=== PATIENT | female | born 1990 | race Caucasian/White ===

== ENCOUNTER 2016-12-21 12:23 | Emergency (ER) | payer OTHER ==
--- NOTE | 2016-12-21 14:50 | XR ---
EXAMINATION TYPE: XR ankle complete RT DATE OF EXAM: 12/21/2016 2:08 PM COMPARISON: NONE HISTORY: Pain fall TECHNIQUE: 3 view right ankle FINDINGS: No acute fractures are evident. Ankle mortise is intact. There is mild diffuse soft tissue swelling. Follow-up studies can be performed 7-10 days from acute trauma for continued pain. IMPRESSION: 1. Soft tissue swelling. Acute displaced fracture is not identified. Follow-up can be performed as c linically indicated.
[2016-12-21] MEDS ORDERED: Acetaminophen-Codeine 300-30mg TAB PO STA (15:14)
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
[2016-12-21 15:30] VITALS: BP 130/68; PULSE 70; RESP 16; TEMP 98
== END 2016-12-21 15:29 | disposition home or self-care (01) ==
LOC: EC 12:23
DX: S93.401A Sprain of unspecified ligament of right ankle, initial encounter (principal); F17.200 Nicotine dependence, unspecified, uncomplicated; Z88.8 Allergy status to other drugs, medicaments and biological substances; Z91.018 Allergy to other foods; Z91.040 Latex allergy status; X50.1XXA Overexertion from prolonged static or awkward postures, initial encounter
CPT/HCPCS: 29515; 99283

== ENCOUNTER 2018-02-16 11:00 | Emergency (ER) | payer OTHER ==
[2018-02-16 11:07] VITALS: BP 121/82; PULSE 88; RESP 18; TEMP 98.6
[2018-02-16] MEDS ORDERED: HYDROcodone/APAP 5-325MG 1 EACH TAB PO STA (11:35)
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
== END 2018-02-16 12:34 | disposition home or self-care (01) ==
LOC: EC 11:00
DX: T23.162A Burn of first degree of back of left hand, initial encounter (principal); T23.132A Burn of first degree of multiple left fingers (nail), not including thumb, initial encounter; T31.0 Burns involving less than 10% of body surface; L25.9 Unspecified contact dermatitis, unspecified cause; F17.200 Nicotine dependence, unspecified, uncomplicated; Z88.8 Allergy status to other drugs, medicaments and biological substances; Z91.018 Allergy to other foods; Z91.040 Latex allergy status; X11.8XXA Contact with other hot tap-water, initial encounter; Y92.69 Other specified industrial and construction area as the place of occurrence of the external cause; Y99.0 Civilian activity done for income or pay
CPT/HCPCS: 99283

== ENCOUNTER 2019-04-25 12:30 | Emergency (ER) | payer OTHER ==
[2019-04-25 12:42] VITALS: BP 121/71; PULSE 88; RESP 16; TEMP 98
--- NOTE | 2019-04-25 13:16 | XR ---
EXAMINATION TYPE: XR foot complete RT DATE OF EXAM: 04/25/2019 CLINICAL HISTORY: Lateral pain after injury today. TECHNIQUE: Frontal, lateral, and oblique images of the right foot are obtained. COMPARISON: None FINDINGS: There is acute transverse minimally distracted fracture base of fifth metatarsal [place]za typ e fracture. The joint spaces in the right foot appear within normal limits. The overlying soft tiss ue appears unremarkable. IMPRESSION: There is an acute minimally displaced transverse fracture through the base of fifth meta tarsal. (Initial encounter closed type posttraumatic fracture)
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
== END 2019-04-25 14:29 | disposition home or self-care (01) ==
LOC: EC 12:30
DX: S92.351A Displaced fracture of fifth metatarsal bone, right foot, initial encounter for closed fracture (principal); F17.200 Nicotine dependence, unspecified, uncomplicated; Z91.040 Latex allergy status; Z91.018 Allergy to other foods; Z88.8 Allergy status to other drugs, medicaments and biological substances; X58.XXXA Exposure to other specified factors, initial encounter
CPT/HCPCS: 29515; 99284

== ENCOUNTER → 2019-11-16 | Outpatient (CLI) | payer OTHER ==
--- NOTE | 2019-11-16 13:33 | NM ---
EXAMINATION TYPE: NM bone 3 phase DATE OF EXAM: 11/16/2019 COMPARISON: Right foot x-ray April 25, 2019 HISTORY: Delayed/nonunion fifth metatarsal fracture. Triple phase bone scintigraphy was performed following the injection of 20.2 mCi Tc 99m MDP. Immedia te images and 5.25 hours post injection images acquired. FINDINGS: Dynamic arterial phase images show no suspicious increase radiotracer uptake to right lateral midfoot versus opposite left side. Soft tissue and delayed phase images show increased radiotracer uptake at area of clinical concern base of fifth metatarsal. Findings could suggest recurrent acute/subacute s tress type fracture at this level accounting for nonhealing. Other etiologies not excluded. IMPRESSION: As above.
== END | disposition home or self-care (01) ==
LOC: RADNMMAIN 07:35
PROVIDERS: ATTEND Podiatrist
DX: S92.351G Displaced fracture of fifth metatarsal bone, right foot, subsequent encounter for fracture with delayed healing (principal)
CPT/HCPCS: 78315; A9503

== ENCOUNTER → 2020-02-08 | Outpatient (CLI) | payer OTHER | END | disposition home or self-care (01) | LOC: LABWHC1 13:22 | PROVIDERS: ATTEND Podiatrist | DX: M25.871 Other specified joint disorders, right ankle and foot (principal) | CPT/HCPCS: 36415; 82306 ==

== ENCOUNTER 2022-12-03 14:05 | Emergency (ER) | payer OTHER ==
[2022-12-03 14:40] VITALS: TEMP 98.3
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
[2022-12-03 16:30] LABS: Appearance,Urine Clear (Clear); Bilirubin,Urine Negative (Negative); Blood,Urine Negative (Negative); Color,Urine Yellow; Glucose,Urine (UA) Negative (Negative); Ketones,Urine Negative (Negative); Leukocyte Esterase,Urine Negative (Negative); Nitrite,Urine Negative (Negative); PH, Urine 6.5 (5.0-8.0); Protein,Urine Trace (Negative); Specific Gravity,Urine 1.012 (1.001-1.035); Urobilinogen,Urine <2.0 mg/dL (<2.0)
[2022-12-03 16:45] LABS: Amphetamine Screen,Urine Not Detected (NotDetected); Barbiturate Screen,Urine Not Detected (NotDetected); Benzodiazepines Screen,Urine Not Detected (NotDetected); Cocaine Screen,Urine Not Detected (NotDetected); Methadone Screen, Urine Not Detected (NotDetected); Opiate Screen,Urine Not Detected (NotDetected); Oxycodone Screen, Urine Not Detected (NotDetected); Phencyclidine Screen,Urine Not Detected (NotDetected); Tricyclic Antidepressant,Urine Not Detected (NotDetected); Urn Cannabinoid Scrn Detected (NotDetected)
[2022-12-03 21:13] VITALS: BP 138/87; PULSE 93; RESP 18
== END 2022-12-03 21:17 | disposition home or self-care (01) ==
LOC: EC 14:05
DX: F43.20 Adjustment disorder, unspecified (principal); F32.A Depression, unspecified; F12.90 Cannabis use, unspecified, uncomplicated; F17.200 Nicotine dependence, unspecified, uncomplicated; Z91.040 Latex allergy status; Z91.018 Allergy to other foods; Z88.8 Allergy status to other drugs, medicaments and biological substances
CPT/HCPCS: 80306; 81003; 82075; 99285